=== PATIENT | female | born 1990 | race Caucasian/White ===

== ENCOUNTER → 2017-10-01 | Outpatient (CLI) | payer BC | LOC: FIMAGING 14:22 | PROVIDERS: ATTEND Obstetrics & Gynecology | DX: Z36.89 Encounter for other specified antenatal screening (principal); Z3A.12 12 weeks gestation of pregnancy ==

== ENCOUNTER 2017-12-02 14:42 | Emergency (ER) | payer BC ==
--- NOTE | 2017-12-02 15:28 | EDPHY ---
H & P Stated Complaint: fell yesterday and hurt ankle. twisted ankle during fall. pain increased Time Seen by Provider: 12/02/17 15:05 HPI/ROS: 27 yo F 21 weeks presents complaining of left ankle and foot pain [place] Review of systems As per HPI General no fever no chills no weakness HEENT no eye pain no eye discharge. No eye redness, no sore throat Respiratory no cough, no shortness of breath Cardiac no chest pain, no peripheral edema GI no abdominal pain, no diarrhea, no constipation, no nausea, no vomiting no flank pain, no hematuria, no dysuria Musculoskeletal no myalgias, positive joint pain Heme no easy bruising, no easy bleeding Endo no polyuria, no polydipsia Skin no rashes, no pruritus Neuro no syncope, no dizziness, no headaches Psych is no suicidal ideation, no homicidal ideation Source: Patient Exam Limitations: No limitations - Personal History LMP (Females 10-55): EDC: 04/11/18 Current Tetanus/Diphtheria Vaccine: Yes Current Tetanus Diphtheria and Acellular Pertussis (TDAP): Yes - Medical/Surgical History Hx Asthma: No Hx Chronic Respiratory Disease: No Hx Diabetes: No Hx Cardiac Disease: No Hx Renal Disease: No Hx Cirrhosis: No Hx Alcoholism: No Hx HIV/AIDS: No Hx Splenectomy or Spleen Trauma: No Other PMH: hx sprained ankle 10+ yrs ago - Family History Significant Family History: No pertinent family hx - Social History Smoking Status: Never smoked Alcohol Use: None Drug Use: None - Physical Exam Exam: 27-year-old female Alert and oriented in no acute distress nontoxic appearance afebrile Atraumatic normocephalic Extraocular muscles intact, anicteric Neck is supple Lungs clear to auscultation no respiratory distress Heart regular rate and rhythm without murmur rub or gallop Abdomen normoactive bowel sounds Extremities no cyanosis clubbing or edema Ankle-positive swelling positive ecchymosis positive tenderness to palpation bilateral malleolus I, no instability, sensation intact, good capillary refill, dorsalis pedis and posterior tibialis intact Constitutional: Initial Vital Signs Temperature (C) 36.7 C 12/02/17 14:49 Heart Rate 97 12/02/17 14:49 Respiratory Rate 16 12/02/17 14:49 Blood Pressure 144/72 H 12/02/17 14:49 O2 Sat (%) 97 12/02/17 14:49 O2 Delivery Mode Room Air Allergies/Adverse Reactions: No Known Allergies Allergy (Verified 12/02/17 15:03) Home Medications: Medication Instructions Recorded Ori 12/02/17 Medical Decision Making - Diagnostics Imaging Results: Imaging Impressions Ankle X-Ray 12/02/17 14:55 Impression: No acute osseous findings. Foot X-Ray 12/02/17 14:55 Impression: No acute osseous findings. ED Course/Re-evaluation: Patient seen and evaluated for ankle and foot pain after tripping in a hole had a pumpkin patch. Left ankle film-negative Left foot film-negative Impression Left ankle sprain Plan Crutches Nonweightbearing Cam boot Follow-up primary care physician Differential Diagnosis: Differential diagnosis considered but not limited to: Unilateral malleolar fracture, bilateral malleolar fracture, trimalleolar fracture, ankle sprain, Jaramillo fracture, foot sprain Departure - Departure Disposition: Home, Routine, Self-Care Clinical Impression: Moderate left ankle sprain Condition: Good Instructions: Ankle Sprain (ED), Crutch Instructions (ED) Additional Instructions: rest, ice, elevate Referrals: NONE *PRIMARY CARE P,. [Primary Care Provider] - As per Instructions
[2017-12-02 16:33] VITALS: BP 138/89
== END 2017-12-02 16:32 | disposition home or self-care (01) ==
LOC: CED 14:42
DX: O9A.212 Injury, poisoning and certain other consequences of external causes complicating pregnancy, second trimester (principal); S93.402A Sprain of unspecified ligament of left ankle, initial encounter; Z3A.21 21 weeks gestation of pregnancy; W17.2XXA Fall into hole, initial encounter; Y92.73 Farm field as the place of occurrence of the external cause
CPT/HCPCS: 73610-PO; 73630-PO; L4386

== ENCOUNTER → 2017-12-20 | Outpatient (CLI) | payer BC | LOC: FIMAGING 14:33 | PROVIDERS: ATTEND Obstetrics & Gynecology | DX: O09.892 Supervision of other high risk pregnancies, second trimester (principal); O24.419 Gestational diabetes mellitus in pregnancy, unspecified control; Z3A.24 24 weeks gestation of pregnancy ==

== ENCOUNTER → 2018-01-17 | Outpatient (CLI) | payer BC | LOC: FIMAGING 14:34 | PROVIDERS: ATTEND Obstetrics & Gynecology | DX: O24.414 Gestational diabetes mellitus in pregnancy, insulin controlled (principal); Z3A.28 28 weeks gestation of pregnancy ==

== ENCOUNTER → 2018-02-18 | Outpatient (CLI) | payer BC | LOC: FIMAGING 14:02 | PROVIDERS: ATTEND Obstetrics & Gynecology | DX: O24.419 Gestational diabetes mellitus in pregnancy, unspecified control (principal); O16.3 Unspecified maternal hypertension, third trimester; Z3A.32 32 weeks gestation of pregnancy ==

== ENCOUNTER → 2018-03-21 | Outpatient (CLI) | payer BC | LOC: FIMAGING 14:45 | PROVIDERS: ATTEND Obstetrics & Gynecology | DX: O24.419 Gestational diabetes mellitus in pregnancy, unspecified control (principal); Z3A.37 37 weeks gestation of pregnancy ==